=== PATIENT | female | born 2000 | race Two or more races ===

== ENCOUNTER 2023-02-16 16:58 | Emergency (ER) | payer OTHER ==
[~2023-02-16] VITALS: Ht 162.6 cm; Wt 56.7 kg
[2023-02-16] MEDS ORDERED: PRISTIQ ER50 MG PO (17:18)
== END 2023-02-16 19:53 | disposition home or self-care (01) ==
LOC: ER 16:58
DX: K29.70 Gastritis, unspecified, without bleeding (principal)

== ENCOUNTER 2024-10-10 01:49 | Emergency (ER) | payer OTHER ==
[~2024-10-10] VITALS: Ht 167.6 cm; Wt 65.8 kg
[~2024-10-10 01:49] MED LIST: PRISTIQ ER50 MG PO
[2024-10-10 02:10] VITALS: BP 112/74; O2SAT 99
[2024-10-10] MEDS ORDERED: METOCLOPRAMIDE HCL 5 MG/ML VIAL IM STA (05:20)
[2024-10-10] MEDS ORDERED: HYOSCYAMINE SULFATE 0.125 MG TAB.SUBL SL STA (05:21)
[2024-10-10] MEDS ORDERED: FAMOtidine 10 MG/ML (4ML VIAL) IV PUSH STA (05:21)
[2024-10-10] MEDS ORDERED: METOCLOPRAMIDE HCL 5 MG/ML VIAL ONE (05:25)
[2024-10-10] MEDS ORDERED: FAMOTIDINE/PF 20 MG/2 ML VIAL ONE (05:25)
== END 2024-10-10 06:15 | disposition home or self-care (01) ==
LOC: ER 01:51
DX: K29.70 Gastritis, unspecified, without bleeding (principal); K30 Functional dyspepsia